=== PATIENT | male | born 1945 | race Caucasian/White ===

== ENCOUNTER 2017-04-24 07:11 | Day surgery (SDC) | payer MEDICARE ==
[~2017-04-24 07:11] MED LIST: Acetaminophen TAB* 325 MG PO PRN; Buffered Lidocaine 0.9% SYRIN* 5 ML/SYR SYRINGE INTRADERM ONE
[2017-04-24] MEDS ORDERED: Midazolam* 1 MG/ML 2 ML VIAL (2 MG) ONE (07:50)
[2017-04-24] MEDS ORDERED: fentaNYL* 50 MCG/ML 2 ML VIAL (100 MCG VIAL) ONE (07:50)
[2017-04-24 09:15] VITALS: BP 133/81
--- NOTE | 2017-04-24 09:50 | OP ---
DATE OF OPERATION: 04/24/17 - [facility] DATE OF : 41 SURGEON: Mina Alcala MD. ANESTHESIA: Monitored anesthesia care. PRE-OP DIAGNOSIS: Cataract of the right eye. POST-OP DIAGNOSIS: Cataract of the right eye. OPERATIVE PROCEDURE: Cataract surgery of the right eye. IMPLANTS: SN60WF 16.5 diopter lens to the right eye. COMPLICATIONS: None. DESCRIPTION OF PROCEDURE: The patient was given phenylephrine 2.5% and cyclopentolate 1% eye drops to the operative eye in the preoperative area. The patient was brought to the operating room, where a time-out was taken to identify the correct patient, site, and side of the surgery. The patient's right eye was prepped and draped in the usual sterile fashion with 5% Betadine. A second time-out was taken to verify the correct patient, site, and side of the surgery and correct lens selection. A lid speculum was placed to the right eye. A 1-mm paracentesis blade was used to make a clear corneal incision in the superotemporal position. Preservative-free 1% lidocaine was injected into the anterior chamber. DisCoVisc was then injected in the anterior chamber. A 2.75-mm keratome blade was used to make a triplanar incision at the inferotemporal position. A cystotome initiated a capsulorrhexis, which was completed with Utrata forceps in a continuous and curvilinear manner. Hydrodissection of the lens was performed with BSS on a cannula. The lens could be spun in the capsular bag. The phacoemulsification handpiece was used with a [id number] technique to remove the nucleus in its entirety. The I/A handpiece then removed the residual cortical lens material. DisCoVisc was injected to inflate the capsular bag. The planned SN60WF 16.5 diopter lens was injected in the capsular bag. The residual DisCoVisc was removed from the eye with the I/A handpiece. The corneal incisions were hydrated and no leaks occurred at physiologic pressure around 20 mmHg per palpation. The lid speculum was removed and drapes removed. Maxitrol ointment was placed to the surface of the operative eye. An adhesive patch and shield was placed on the operative eye. The patient was taken to the postoperative area in stable condition. [id number] #: [id number] MTDD
[2017-04-24] MEDS ORDERED: acetaZOLAMIDE TAB* 250 MG ONE (14:42)
[2017-04-24] MEDS ORDERED: Tetracaine 0.5% OPTH.SOL 4 ML* 1 DROP BTL ONE (14:42)
[2017-04-24] MEDS ORDERED: Tropicamide 1% OPTH.SOL* BTL ONE (14:42)
[2017-04-24] MEDS ORDERED: Lidocaine 1% MPF* 2 ML VIAL ONE (14:42)
[2017-04-24] MEDS ORDERED: Phenylephrine 2.5% OPTH.SOL* 2 ML BTL ONE (14:42)
[2017-04-24] MEDS ORDERED: Cyclopentolate 1% OPTH.SOL* 2 ML BTL ONE (14:42)
[2017-04-24] MEDS ORDERED: Buffered Lidocaine 0.9% SYRIN* 5 ML/SYR SYRINGE ONE (14:42)
[2017-04-24] MEDS ORDERED: Flurbiprofen 0.03% OPTH.SOL* 2.5 ML BTL ONE (14:42)
[2017-04-24] MEDS ORDERED: Povidone Iodine 5% OPTH* 30 ML BTL ONE (14:42)
[2017-04-24] MEDS ORDERED: Neomycin/Polymy/Dex OPHTH.OIN* 3.5 GM ONE (14:42)
== END 2017-04-24 09:25 | disposition home or self-care (01) ==
LOC: OREAST 07:11
PROVIDERS: ATTEND Student in an Organized Health Care Education/Training Program
DX: H25.13 Age-related nuclear cataract, bilateral (principal); H35.3113 Nonexudative age-related macular degeneration, right eye, advanced atrophic without subfoveal involvement; H35.3122 Nonexudative age-related macular degeneration, left eye, intermediate dry stage; K21.9 Gastro-esophageal reflux disease without esophagitis; I10 Essential (primary) hypertension; J44.9 Chronic obstructive pulmonary disease, unspecified; E78.2 Mixed hyperlipidemia; N40.0 Benign prostatic hyperplasia without lower urinary tract symptoms; L03.90 Cellulitis, unspecified; R91.8 Other nonspecific abnormal finding of lung field; D44.0 Neoplasm of uncertain behavior of thyroid gland; Z79.82 Long term (current) use of aspirin; Z85.828 Personal history of other malignant neoplasm of skin
CPT/HCPCS: A9270-GY; J2250; J3010; V2632

== ENCOUNTER 2017-05-01 09:41 | Day surgery (SDC) | payer MEDICARE ==
[2017-05-01] MEDS ORDERED: fentaNYL* 50 MCG/ML 2 ML VIAL (100 MCG VIAL) ONE (11:16)
[2017-05-01] MEDS ORDERED: Midazolam* 1 MG/ML 2 ML VIAL (2 MG) ONE (11:16)
[2017-05-01 12:23] VITALS: BP 118/76
[2017-05-01] MEDS ORDERED: Lidocaine 1% MPF* 2 ML VIAL ONE (16:39)
[2017-05-01] MEDS ORDERED: Buffered Lidocaine 0.9% SYRIN* 5 ML/SYR SYRINGE ONE (16:39)
[2017-05-01] MEDS ORDERED: acetaZOLAMIDE TAB* 250 MG ONE (16:39)
[2017-05-01] MEDS ORDERED: Flurbiprofen 0.03% OPTH.SOL* 2.5 ML BTL ONE (16:39)
[2017-05-01] MEDS ORDERED: Neomycin/Polymy/Dex OPHTH.OIN* 3.5 GM ONE (16:39)
[2017-05-01] MEDS ORDERED: Phenylephrine 2.5% OPTH.SOL* 2 ML BTL ONE (16:39)
[2017-05-01] MEDS ORDERED: Tetracaine 0.5% OPTH.SOL 4 ML* 1 DROP BTL ONE (16:39)
[2017-05-01] MEDS ORDERED: Povidone Iodine 5% OPTH* 30 ML BTL ONE (16:39)
[2017-05-01] MEDS ORDERED: Tropicamide 1% OPTH.SOL* BTL ONE (16:39)
[2017-05-01] MEDS ORDERED: Ketorolac 0.5% OPHTH (NF) 0.5 % 5 ML BTL ONE (16:39)
--- NOTE | 2017-05-01 18:45 | OP ---
DATE OF OPERATION: 05/01/17 - [facility] DATE OF : 41 SURGEON: Mina Alcala MD. ANESTHESIOLOGIST: Joe Mendez MD ANESTHESIA: Monitored anesthesia care. PRE-OP DIAGNOSIS: Cataract, left eye. POST-OP DIAGNOSIS: Cataract, left eye. OPERATIVE PROCEDURE: Cataract surgery of the left eye. IMPLANTS: SN60WF 17.0 diopter lens to the left eye. COMPLICATIONS: None. DESCRIPTION OF PROCEDURE: The patient was given phenylephrine 2.5% and cyclopentolate 1% eye drops to the operative eye in the preoperative area. The patient was brought to the operating room where a time-out was taken to identify the correct patient, site and side of surgery. The patient's left eye was prepped and draped in the usual sterile fashion with 5% Betadine. A second time-out was taken to identify the correct patient, site and side of surgery and correct lens selection. A lid speculum was placed to the left eye. A 1-mm paracentesis blade was used to make a clear corneal incision in the inferotemporal position. Preservative-free 1% lidocaine was injected into the anterior chamber. DisCoVisc was injected into the anterior chamber. A 2.75-mm keratome blade was used to make a triplanar incision at the superotemporal position. A cystotome initiated a capsulorrhexis, which was completed with Utrata forceps in a continuous and curvilinear manner. Hydrodissection of the lens was performed with BSS on a cannula. The lens could be spun in the capsular bag. The phacoemulsification handpiece was used with a divide-and- conquer technique to remove the nucleus in its entirety with 13.40 CDE. The I/ A handpiece then removed the residual cortical lens material. DisCoVisc was injected to inflate the capsular bag. The planned SN60WF 17.0 diopter lens was injected into the capsular bag. The residual DisCoVisc was removed from the eye with the I/A handpiece. The corneal incisions were hydrated and no leaks occurred at physiologic pressure around 20 mmHg per palpation. The lid speculum was removed and drapes removed. Maxitrol ointment was placed on the surface of the operative eye. An adhesive patch and shield was placed on the operative eye. The patient was taken to the postoperative area in stable condition. [id number] #: [id number] MTDDavid
== END 2017-05-01 12:20 | disposition home or self-care (01) ==
LOC: OREAST 09:41
PROVIDERS: ATTEND Student in an Organized Health Care Education/Training Program
DX: H25.12 Age-related nuclear cataract, left eye (principal); Z96.1 Presence of intraocular lens; H35.3113 Nonexudative age-related macular degeneration, right eye, advanced atrophic without subfoveal involvement; H35.3122 Nonexudative age-related macular degeneration, left eye, intermediate dry stage; I10 Essential (primary) hypertension; K21.9 Gastro-esophageal reflux disease without esophagitis; J44.9 Chronic obstructive pulmonary disease, unspecified; E78.2 Mixed hyperlipidemia; N40.0 Benign prostatic hyperplasia without lower urinary tract symptoms; L03.90 Cellulitis, unspecified; R91.8 Other nonspecific abnormal finding of lung field; D44.0 Neoplasm of uncertain behavior of thyroid gland; Z79.82 Long term (current) use of aspirin; Z85.828 Personal history of other malignant neoplasm of skin
CPT/HCPCS: A9270-GY; J2250; J3010; V2632